=== PATIENT | male | born 1985 | race Hispanic/Latino ===

== ENCOUNTER 2017-02-17 23:49 | Emergency (ER) | payer OTHER ==
[~2017-02-17] VITALS: Ht 165.1 cm; Wt 59.0 kg
[~2017-02-17 23:49] MED LIST: GUAIFENESIN-COD10 ML PO; IBU-6600 MG PO; LANTUS SOL100 UNIT/1 SC; NOVOLOG FL100 UNIT/1 SC; TAMIFLU75 M1 PO; ZITHROMAX250 M2 PO; ZOFRAN ODT4 M1 PO; ZOFRAN4 M1 SL
[2017-02-18 00:18] LABS: ABSOLUTE BASOPHIL COUNT 0.1 /CUMM (0.0-0.2); ABSOLUTE EOSINOPHIL COUNT 0.2 /CUMM (0.0-0.7); ABSOLUTE GRANULOCYTE CT 10.9 /CUMM (1.4-6.5); ABSOLUTE LYMPH COUNT 2.5 /CUMM (1.2-3.4); ABSOLUTE MONOCYTE COUNT 0.7 /CUMM (0.10-0.60); BASOPHIL % 0.5 % (0.0-2.0); EOSINOPHIL % 1.5 % (0-5); GRANULOCYTE % 75.6 % (42.2-75.2); HEMATOCRIT 45.2 % (42-52); MEAN CORPUSCULAR HGB 26.5 PG (27.0-31.0); MEAN CORPUSCULAR VOLUME 77.8 FL (80.0-94.0); MEAN PLATELET VOLUME 9.6 FL (7.4-10.4); PLATELET COUNT 166 /CUMM (130-400); RED BLOOD CELL CT 5.82 /CUMM (4.70-6.10); WHITE BLOOD CELL COUNT 14.4 /CUMM (4.8-10.8)
--- NOTE | 2017-02-18 01:02 | ED GENERAL ADULT ---
History of Present Illness General Chief Complaint: General Adult Stated Complaint: HX DIABETIES PER PT BS ABOUT 400-500 Source: patient, old records Exam Limitations: no limitations Vital Signs & Intake/Output Vital Signs & Intake/Output Vital Signs Date Time Temp Pulse Resp B/P Pulse O2 O2 Flow FiO2 Ox Delivery Rate 02/18 0156 98 Room Air 02/17 2358 98.5 99 18 166/97 99 Room Air ED Intake and Output 02/18 0000 02/17 1200 Intake Total Output Total Balance Patient 130 lb Weight Allergies Coded Allergies: NO KNOWN ALLERGIES (03/21/16) Reconcile Medications Azithromycin (Zithromax) 250 MG TABLET 1 DP PO AD uri 2 the first day followed by 1 for days 2-5 Insulin Aspart, Recombinant (Novolog Flexpen) 100 UNIT/1 ML INSULN.PEN 5 UNITS SC Q4H DIABETES (Reported) Insulin Glargine,Hum.rec.anlog (Lantus Solostar) 100 UNIT/1 ML INSULN.PEN 15 UNIT SC QPM DIABETES (Reported) PLEASE START TAKING THE 15 UNITS FROM TOMORROW 03/24/2016. PLEASE TAKE 7 UNTIS OF LANTUS TONIGHT IE 03/23/2016, YOU HAVE ALREADY RECIEVED MORNING DOSE OF INSULIN Ondansetron (Zofran Odt) 4 MG TAB.RAPDIS 1 TAB PO 4 TIMES/DAY PRN NAUSEA Oseltamivir Phosphate (Tamiflu) 75 MG CAPSULE 1 TAB PO BID influenza B Robitussin AC (Guaifenesin-Codeine Syrup) 200 MG-20 MG/10 ML LIQUID 10 ML PO Q6HR PRN COUGH Triage Note: PT TO ED C/O SHARP EPIGASTRIC PAIN THAT WRAPS TO RT, FOR 3 HRS. PMH OF PANCREATITIS "FEELS THE SAME" IS IDDM. FINGERSTICKS AT HOME HAVE BEEN "400-500 ALL DAY" PT STATES HE HASN'T EATEN ALL DAY. FINGERSTICK IN TRIAGE 351 Triage Nurses Notes Reviewed? yes Onset: Abrupt Duration: day(s): (1) Timing: multiple episodes today Injury Environment: home Severity: mild, moderate No Modifying Factors: none Associated Symptoms: ABDOMINAL PAIN, LOSS OF APPETITE HPI: 31-year-old male with history of insulin-dependent diabetes presents to the ER for chief complaint of not feeling well, decreased appetite and epigastric abdominal pain for the past 3 hours. He states in general he has not been feeling well all day long. No nausea or vomiting. No fever or chills. Pain does not radiate anywhere. He states he has a history of pancreatitis and was wondering if he had it again today. Denies any diarrhea. No trauma to the abdomen. He is compliant with his medications. His physician sugar has been running 3-400 over the last day. He follows up with primary care doctor as well as Dr. wylie for endocrinology. Past History Travel History Traveled to [place] past 21 day No Medical History Any Pertinent Medical History? 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 Hx Contributory? No Review of Systems Review of Systems Constitutional: Reports: weakness. Denies: chills, fever. Physical Exam Physical Exam General Appearance: alert, awake, anxious, mild distress, thin Head: atraumatic, normal appearance Eyes: Bilateral: normal appearance, PERRL, EOMI. Ears, Nose, Throat: normal pharynx, hearing grossly normal Neck: normal inspection, supple, full range of motion Respiratory: normal breath sounds, chest non-tender, no respiratory distress Cardiovascular: regular rate/rhythm Peripheral Pulses: 2+ radial (R), 2+ radial (L) Gastrointestinal: normal bowel sounds, soft, non-tender Back: normal inspection, normal range of motion Extremities: normal inspection, normal capillary refill, normal range of motion, no edema Neurologic/Psych: no motor/sensory deficits, awake, alert, oriented x 3 Skin: intact, normal color, warm/dry Core Measures ACS in differential dx? No CVA/TIA Diagnosis: No Severe Sepsis Present: No Septic Shock Present: No Progress Differential Diagnoses I considered the following diagnoses in my evaluation of the patient: [Hyper- glycemia, DKA, gastritis, peptic ulcer disease, hepatitis, pancreatitis] Plan of Care: Orders Procedure Date/time Status RAPID VIRAL INFLUENZA A 04/05 0111 Complete LIPASE 02/18 2017 Complete COMPREHENSIVE METABOLIC PANEL 02/18 2017 Complete CBC WITHOUT DIFFERENTIAL 02/18 2017 Complete AMYLASE 02/18 2017 Complete Laboratory Tests 02/18/17 0006: Anion Gap 9, Estimated GFR > 60, BUN/Creatinine Ratio 21.3, Glucose 406 H, Calcium 9.8, Total Bilirubin 0.5, AST 17, ALT 29, Alkaline Phosphatase 70, Total Protein 7.1, Albumin 4.3, Globulin 2.8, Albumin/Globulin Ratio 1.5, Amylase 54, Lipase 114, CBC w Diff NO MAN DIFF REQ, RBC 5.82, MCV 77.8 L, MCH 26.5 L, RDW 13.0, MPV 9.6, Gran % 75.6 H, Lymphocytes % 17.5 L, Monocytes % 4.9, Eosinophils % 1.5, Basophils % 0.5, Absolute Granulocytes 10.9 H, Absolute Lymphocytes 2.5, Absolute Monocytes 0.7 H, Absolute Eosinophils 0.2, Absolute Basophils 0.1, PUBS MCHC 34.0 Microbiology 02/18 123 NASOPHARYN: Influenza Virus A & B Rapid Smear - COMP 02/18/2017 3:10:04 AM Patient feeling slightly better. Blood sugar down into the 80s. He had juice and a wrap. Chest x-ray is negative, flu is negative. Patient likely has viral syndrome. He will follow-up with Dr. wylie in the office. (BRETT MARCUS,JOHN) Diagnostic Imaging: Viewed by Me: Radiology Read. Discussed w/RAD: Radiology Read. CXR Impression: PATIENT: PRAFUL CABRERA PRESENT AGE: 31 PATIENT ACCOUNT NO: [id number] : 86 LOCATION: [facility] ORDERING PHYSICIAN: JOHN WEST MD SERVICE DATE: 02/18/17 EXAM TYPE: RAD - XRY-CHEST XRAY , PA AND LATERAL EXAMINATION: XR CHEST CLINICAL INFORMATION: Cough, not feeling well. COMPARISON: Chest x-ray 03/21/2016 TECHNIQUE: 2 views of the chest were obtained. FINDINGS: No significant abnormality is noted involving the heart, lungs, mediastinum, bony thorax or soft tissues. IMPRESSION: Normal chest. DICTATED BY: BEN FOX MD DATE/TIME DICTATED:02/18/17144 SHALE PLANER OPERATOR HELPER :AARON DATE/TIME TRANSCRIBED:02/18/17144 CONFIDENTIAL, DO NOT COPY WITHOUT APPROPRIATE AUTHORIZATION. <Electronically signed in Other Vendor System> SIGNED BY: BEN FOX MD 02/18/17148 Initial ED EKG: none Departure Departure Time of Disposition: 309 Disposition: HOME OR SELF CARE Condition: Stable Clinical Impression Primary Impression: Hyperglycemia Referrals: ILENE JOSE DO (PCP/Family) BEBETO MARCUS,MELANIE Additional Instructions: Check your blood sugar and take your insulin as directed. If you have issues controlling her blood sugar please call Dr. wylie. Return to the ER for any changing or worsening symptoms. Departure Forms: Customer Survey General Discharge Information Critical Care Note Critical Care Note Critical Care Time: non-applicable
--- NOTE | 2017-02-18 01:49 | RADIOLOGY REPORT ---
EXAMINATION: XR CHEST CLINICAL INFORMATION: Cough, not feeling well. COMPARISON: Chest x-ray 03/21/2016 TECHNIQUE: 2 views of the chest were obtained. FINDINGS: No significant abnormality is noted involving the heart, lungs, mediastinum, bony thorax or soft tissues. IMPRESSION: Normal chest.
[2017-02-18 03:13] VITALS: BP 130/64
== END 2017-02-18 03:46 ==
LOC: ERH 23:49
PROVIDERS: Emergency Medicine
DX: E10.65 Type 1 diabetes mellitus with hyperglycemia (principal)
CPT/HCPCS: 87804; 87804-59; 96360; 96372

== ENCOUNTER 2018-01-04 12:23 | Observation (INO) | payer OTHER ==
[2018-01-04] MEDS ORDERED: IBUPROFEN800 M1 PO (16:04)
[2018-01-04] MEDS ORDERED: DICYCLOMINE HCL10 M1 PO (16:04)
[2018-01-04] MEDS ORDERED: PROMETHAZINE HC25 M3 PO (16:04)
[2018-01-04] MEDS ORDERED: ZOFRAN ODT4 M1 SL (16:04)
--- NOTE | 2018-01-04 16:05 | ED GENERAL ADULT ---
See Addendum History of Present Illness General Chief Complaint: General Adult Stated Complaint: HYPOGLACEMIA, "55" PER PT Source: patient Exam Limitations: no limitations Vital Signs & Intake/Output Vital Signs & Intake/Output Vital Signs Date Time Temp Pulse Resp B/P B/P Pulse O2 O2 Flow FiO2 Mean Ox Delivery Rate 01/04 1952 98.6 81 18 128/65 98 Room Air 01/04 1232 97.4 106 132/76 98 Room Air Allergies Coded Allergies: NO KNOWN ALLERGIES (03/21/16) Reconcile Medications Azithromycin (Zithromax) 250 MG TABLET 1 DP PO AD uri 2 the first day followed by 1 for days 2-5 Dicyclomine HCl 10 MG CAPSULE 1 CAP PO TID abd spasms Ibuprofen 800 MG TABLET 1 TAB PO TID body ches/fever Insulin Aspart, Recombinant (Novolog Flexpen) 100 UNIT/1 ML INSULN.PEN 5 UNITS SC Q4H DIABETES (Reported) Insulin Glargine,Hum.rec.anlog (Lantus Solostar) 100 UNIT/1 ML INSULN.PEN 15 UNIT SC QPM DIABETES (Reported) PLEASE START TAKING THE 15 UNITS FROM TOMORROW 03/24/2016. PLEASE TAKE 7 UNTIS OF LANTUS TONIGHT IE 03/23/2016, YOU HAVE ALREADY RECIEVED MORNING DOSE OF INSULIN Ondansetron (Zofran Odt) 4 MG TAB.RAPDIS 1 TAB SL TID nausea Ondansetron (Zofran Odt) 4 MG TAB.RAPDIS 1 TAB PO 4 TIMES/DAY PRN NAUSEA Oseltamivir Phosphate (Tamiflu) 75 MG CAPSULE 1 TAB PO BID influenza B Promethazine HCl 25 MG TABLET 1 TAB PO Q6P PRN nausea Robitussin AC (Guaifenesin-Codeine Syrup) 200 MG-20 MG/10 ML LIQUID 10 ML PO Q6HR PRN COUGH Triage Note: PT TO ED WITH MID ABD PAIN, N/V SINCE LAST NIGHT. REPORTS BLOOD GLUCOSE READING 55 AT HOME THIS MORNING. DRANK OJ BUT HAVING TROUBLE KEEPING PO DOWN. BLOOD SUGAR 263 AT TRIAGE. Triage Nurses Notes Reviewed? yes Onset: Abrupt Duration: hour(s):, constant, continues in ED Timing: recent history Injury Environment: home No Modifying Factors: none HPI: 32-year-old male comes into the emergency room for further evaluation of sudden onset nausea vomiting diarrhea that began this morning around 2 AM. Patient has not been able to keep anything down. Patient feels profoundly weak. Denies any fever. Comes in for further evaluation. Patient is a type I diabetic. (Edwar Aguilar) Past History Travel History Traveled to [place] past 21 day No Medical History Any Pertinent Medical History? 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 Hx Contributory? No (Edwar Aguilar) Review of Systems Review of Systems Constitutional: Reports: see HPI. EENTM: Reports: no symptoms. Respiratory: Reports: no symptoms. Cardiovascular: Reports: no symptoms. GI: Reports: see HPI. Genitourinary: Reports: no symptoms. Musculoskeletal: Reports: no symptoms. Skin: Reports: no symptoms. Neurological/Psychological: Reports: no symptoms. Hematologic/Endocrine: Reports: no symptoms. Immunologic/Allergic: Reports: no symptoms. All Other Systems: Reviewed and Negative (Edwar Aguilar) Physical Exam Physical Exam General Appearance: well developed/nourished, alert, awake Head: atraumatic, normal appearance Eyes: Bilateral: normal appearance. Ears, Nose, Throat: normal ENT inspection, hearing grossly normal Neck: normal inspection Respiratory: normal breath sounds, no respiratory distress Cardiovascular: regular rate/rhythm Back: normal inspection Extremities: normal inspection Neurologic/Psych: awake, alert, oriented x 3, normal gait Skin: intact, normal color Core Measures ACS in differential dx? No CVA/TIA Diagnosis: No Sepsis Present: No Sepsis Focused Exam Completed? No (Edwar Aguilar) Progress Differential Diagnoses I considered the following diagnoses in my evaluation of the patient: Gastritis , influenza, viral syndrome, DKA, Plan of Care: Orders Procedure Date/time Status CBC WITHOUT DIFFERENTIAL 01/05 0200 Active BASIC METABOLIC PANEL 01/05 0200 Active ACETONE 01/05 0200 Active URINALYSIS 01/04 1802 Complete Add-on Test (ER Only) 01/04 1749 Active Add-on Test (ER Only) 01/04 1704 Active LACTIC ACID 01/04 1610 Complete ACETONE 01/04 1610 Complete EKG 01/04 1602 Active TROPONIN LEVEL 01/04 1538 Complete LIPASE 01/04 1538 Complete COMPREHENSIVE METABOLIC PANEL 01/04 1302 Complete CBC WITHOUT DIFFERENTIAL 01/04 1302 Complete Current Medications Sig/Janeth Start time Last Medication Dose Stop Time Status Admin Insulin Detemir 16 UNITS ONCE ONE 01/04 2100 AC (Levemir) 01/04 210 Sodium Chloride 1,000 ML BOLUS ONE 01/04 1930 AC (Normal Saline 0.9%) 01/04 2029 Sodium Chloride 1,000 ML ONCE ONE 01/04 1915 AC 01/04 (Normal Saline 0.9%) 01/05 0154 1913 Laboratory Tests 01/04/18 1805: Urine Color YEL, Urine Clarity CLEAR, Urine pH 6.0, Ur Specific [place] 1.025, Urine Protein NEG, Urine Ketones >=80, Urine Nitrite NEG, Urine Bilirubin NEG, Urine Urobilinogen 0.2, Ur Leukocyte Esterase NEG, Ur Microscopic EXAM NOT REQUIRED, Urine Hemoglobin NEG, Urine Glucose >=1000 H 01/04/18 1703: Acetone Level Cancelled 01/04/18 1610: Troponin I < 0.01, Lipase 52 01/04/18 1610: Anion Gap 18 H, Estimated GFR > 60, BUN/Creatinine Ratio 28.6 H, Glucose 301 H, Lactic Acid 1.5, Calcium 10.1, Total Bilirubin 1.1, AST 24, ALT 28, Alkaline Phosphatase 83, Total Protein 7.9, Albumin 4.8, Globulin 3.1, Albumin/Globulin Ratio 1.5, CBC w Diff NO MAN DIFF REQ, RBC 6.11 H, MCV 79.3 L, MCH 26.0 L, MCHC 32.8 L, RDW 13.4, MPV 9.6, Gran % 90.0 H, Lymphocytes % 4.2 L, Monocytes % 5.6, Eosinophils % 0, Basophils % 0.2, Absolute Granulocytes 10.4 H, Absolute Lymphocytes 0.5 L, Absolute Monocytes 0.6, Absolute Eosinophils 0, Absolute Basophils 0, Acetone Level POSITIVE AT 1:4 DIL Initial ED EKG: normal sinus rhythm, rate (89) (Edwar Aguilar) Differential Diagnoses I considered the following diagnoses in my evaluation of the patient: (Connor Navarro DO) Departure Departure Disposition: STILL A PATIENT Condition: Stable Clinical Impression Primary Impression: Dehydration Secondary Impressions: Viral syndrome Referrals: Razia Baig DO (PCP/Family) Additional Instructions: Take Zofran, promethazine, ibuprofen, and Bentyl as prescribed. Rest. Drink plenty fluids. Return if any other concerns worsening symptoms. Please go over all results of today's visit with your primary care doctor. Contact your primary care doctor to let them know you were here in the emergency room. There may be nonspecific findings which may not be related to your visit today here in the emergency room but may require further evaluation and chronic monitoring by your primary care doctor. If you had a laceration today the chance of foreign body always remains. You should follow-up with your primary care doctor for recheck in 3-5 days for a wound check. If you had an x-ray done there is a chance that a fracture could have been missed on initial read and you should follow-up with your primary care doctor for repeat x-rays if symptoms persist. If your blood pressure was elevated here in the emergency room please have rechecked by [facility] primary care doctor within the next 48. If you were prescribed a narcotic here in the emergency room or any type of controlled substances you're not allowed to drive while taking this medication or operate any type of heavy machinery. Narcotics can make you feel lightheaded dizziness nausea and can cause constipation. You may need to fruit or nut picker a stool softener. Thank you for choosing [facility] emergency room. Please return to the emergency room immediately if you have any other concerns worsening of symptoms. Departure Forms: Customer Survey General Discharge Information Prescriptions: Current Visit Scripts Ondansetron (Zofran Odt) 1 TAB SL TID #10 TAB Promethazine HCl 1 TAB PO Q6P PRN nausea #30 TAB Dicyclomine HCl 1 CAP PO TID #20 CAP Ibuprofen 1 TAB PO TID #20 TAB Comments 01/04/2018 7:21:22 PM Patient is going to be placed in ED observation. Patient signed out to Dr. Elmer. Repeat labs. Continue IV hydration. (Edwar Aguilar) PA/CORPORATE LEGAL INTERN Co-Sign Statement Statement: ED Attending supervision documentation- [X] I saw and evaluated the patient. I have also reviewed all the pertinent lab results and diagnostic results. I agree with the findings and the plan of care as documented in the PA's/CORPORATE LEGAL INTERN's documentation. [] I have reviewed the ED Record and agree with the PA's/CORPORATE LEGAL INTERN's documentation. [] Additions or exceptions (if any) to the PAs/CORPORATE LEGAL INTERN's note and plan are summarized below: [] (Ramon HERNÁNDEZ,Connor Faustin) Critical Care Note Critical Care Note Critical Care Time: 30-74 min (45) (Edwar Aguilar)
[2018-01-04 16:26] LABS: ABSOLUTE BASOPHIL COUNT 0 /CUMM (0.0-0.2); ABSOLUTE EOSINOPHIL COUNT 0 /CUMM (0.0-0.7); ABSOLUTE GRANULOCYTE CT 10.4 /CUMM (1.4-6.5); ABSOLUTE LYMPH COUNT 0.5 /CUMM (1.2-3.4); ABSOLUTE MONOCYTE COUNT 0.6 /CUMM (0.10-0.60); BASOPHIL % 0.2 % (0.0-2.0); EOSINOPHIL % 0 % (0-5); HEMATOCRIT 48.5 % (42-52); MEAN CORPUSCULAR HGB CONC 32.8 G/DL (33.0-37.0); MEAN CORPUSCULAR VOLUME 79.3 FL (80.0-94.0); MEAN PLATELET VOLUME 9.6 FL (7.4-10.4); PLATELET COUNT 225 /CUMM (130-400); RBC DISTRIBUTION WIDTH 13.4 % (11.5-14.5); RED BLOOD CELL CT 6.11 /CUMM (4.70-6.10); WHITE BLOOD CELL COUNT 11.5 /CUMM (4.8-10.8)
[2018-01-05 01:03] LABS: ABSOLUTE EOSINOPHIL COUNT 0 /CUMM (0.0-0.7); ABSOLUTE LYMPH COUNT 1.1 /CUMM (1.2-3.4); ABSOLUTE MONOCYTE COUNT 0.9 /CUMM (0.10-0.60)
[2018-01-05 01:12] LABS: ABSOLUTE BASOPHIL COUNT 0 /CUMM (0.0-0.2); ABSOLUTE GRANULOCYTE CT 6.1 /CUMM (1.4-6.5); BASOPHIL % 0.1 % (0.0-2.0); EOSINOPHIL % 0.1 % (0-5); GRANULOCYTE % 75.1 % (42.2-75.2); MEAN CORPUSCULAR HGB 26.3 PG (27.0-31.0); MEAN CORPUSCULAR HGB CONC 33.7 G/DL (33.0-37.0); MEAN PLATELET VOLUME 9.5 FL (7.4-10.4); PLATELET COUNT 156 /CUMM (130-400); RBC DISTRIBUTION WIDTH 12.9 % (11.5-14.5); RED BLOOD CELL CT 4.99 /CUMM (4.70-6.10); WHITE BLOOD CELL COUNT 8.1 /CUMM (4.8-10.8)
[2018-01-05 01:23] LABS: HEMATOCRIT 38.9 % (42-52)
[2018-01-05 01:58] VITALS: BP 119/56
== END 2018-01-05 02:00 ==
LOC: ERH 12:23 → ERHI 20:51
PROVIDERS: Physician Assistant; Physician Assistant Medical
DX: E10.10 Type 1 diabetes mellitus with ketoacidosis without coma (principal); Z79.4 Long term (current) use of insulin; F17.200 Nicotine dependence, unspecified, uncomplicated; E86.0 Dehydration; B34.9 Viral infection, unspecified
CPT/HCPCS: 81003; 93005; 93010; 96372; 96374; 96375; 99291; G0378; J1815; J1885; J2405; J2765; J3490

== ENCOUNTER 2018-07-31 10:24 | Emergency (ER) | payer OTHER ==
[~2018-07-31] VITALS: Ht 165.1 cm; Wt 56.7 kg
[~2018-07-31 10:24] MED LIST changes: +DICYCLOMINE HCL10 M1 PO; +IBUPROFEN800 M1 PO; +PROMETHAZINE HC25 M3 PO; +ZOFRAN ODT4 M1 SL
--- NOTE | 2018-07-31 11:33 | ED GI/GU/ABDOMINAL COMPLAINT ---
History of Present Illness General Chief Complaint: Abdominal Pain/Flank Pain Stated Complaint: ELAVATED BS/ABD PAIN Source: patient, old records Exam Limitations: no limitations Vital Signs & Intake/Output Vital Signs & Intake/Output Vital Signs Date Time Temp Pulse Resp B/P B/P Pulse O2 O2 Flow FiO2 Mean Ox Delivery Rate 07/31 1359 97.6 68 18 118/65 98 07/31 1033 96.2 88 18 143/73 98 Room Air Allergies Coded Allergies: NO KNOWN ALLERGIES (03/21/16) Reconcile Medications Azithromycin (Zithromax) 250 MG TABLET 1 DP PO AD uri 2 the first day followed by 1 for days 2-5 Dicyclomine HCl 10 MG CAPSULE 1 CAP PO TID abd spasms Ibuprofen 800 MG TABLET 1 TAB PO TID body ches/fever Insulin Aspart, Recombinant (Novolog Flexpen) 100 UNIT/1 ML INSULN.PEN 5 UNITS SC Q4H DIABETES (Reported) Insulin Glargine,Hum.rec.anlog (Lantus Solostar) 100 UNIT/1 ML INSULN.PEN 15 UNIT SC QPM DIABETES (Reported) PLEASE START TAKING THE 15 UNITS FROM TOMORROW 03/24/2016. PLEASE TAKE 7 UNTIS OF LANTUS TONIGHT IE 03/23/2016, YOU HAVE ALREADY RECIEVED MORNING DOSE OF INSULIN Ondansetron (Zofran Odt) 4 MG TAB.RAPDIS 1 TAB SL TID nausea Ondansetron (Zofran Odt) 4 MG TAB.RAPDIS 1 TAB PO 4 TIMES/DAY PRN NAUSEA Oseltamivir Phosphate (Tamiflu) 75 MG CAPSULE 1 TAB PO BID influenza B Promethazine HCl 25 MG TABLET 1 TAB PO Q6P PRN nausea Robitussin AC (Guaifenesin-Codeine Syrup) 200 MG-20 MG/10 ML LIQUID 10 ML PO Q6HR PRN COUGH Triage Note: 33 YEAR OLD MALE STATES THAT HE IS IDDM AND THAT FOR THE PAST COUPLE OF DAYS HE HAS BEEN HAVING MID ABD PAIN, DENIES N/V/D AND ALSO STATES THAT HE HAS A FRUITY ODOR TO HIS BREATH, FS 304 AT THIS TIME, PT STATES THAT HE USED INSULIN ABOUT 1 HOUR AGO, NOVOLOG 7 UNITS. Triage Nurses Notes Reviewed? yes HPI: 33M PMH Type 1 DM comes in with diffuse abdominal cramping and nausea, found his fingerstick at home to be 400. Abdominal cramping started this morning and has been constant with decreased appetite. He denies fever, chills, headache, sore throat, stiff neck, chest pain, SOB, diarrhea, dysuria, constipation. He is compliant with his insulin and diet. He has no other complaints. Past History Travel History Traveled to [place] past 21 day No Medical History Any Pertinent Medical History? 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 Hx Contributory? No Review of Systems Review of Systems Constitutional: Reports: no symptoms. EENTM: Reports: no symptoms. Respiratory: Reports: no symptoms. Cardiovascular: Reports: no symptoms. GI: Reports: no symptoms. Genitourinary: Reports: no symptoms. Musculoskeletal: Reports: no symptoms. Skin: Reports: no symptoms. Neurological/Psychological: Reports: no symptoms. Hematologic/Endocrine: Reports: no symptoms. Immunologic/Allergic: Reports: no symptoms. All Other Systems: Reviewed and Negative Physical Exam Physical Exam General Appearance: well developed/nourished, no apparent distress Head: atraumatic, normal appearance Eyes: Bilateral: normal appearance. Ears, Nose, Throat, Mouth: moist mucous membrane Neck: normal inspection, supple, full range of motion Respiratory: normal breath sounds, no respiratory distress Cardiovascular: regular rate/rhythm Gastrointestinal: soft, non-tender Back: normal inspection (1), normal range of motion Extremities: normal range of motion Neurologic/Psych: awake, alert, oriented x 3, normal mood/affect Skin: intact, normal color, warm/dry Core Measures ACS in differential dx? No Sepsis Present: No Sepsis Focused Exam Completed? No Progress Differential Diagnosis: biliary colic, gastritis, hepatitis, pancreatitis Plan of Care: Orders Procedure Date/time Status LIPASE 07/31 1140 Complete BLOOD CULTURE 07/31 1120 Active LACTIC ACID 07/31 1120 Complete COMPREHENSIVE METABOLIC PANEL 07/31 1120 Complete CBC WITHOUT DIFFERENTIAL 07/31 1120 Complete URINALYSIS 07/31 1118 Complete Laboratory Tests 07/31/18 1420: Lactic Acid Cancelled 07/31/18 1140: Anion Gap 10, Estimated GFR > 60, BUN/Creatinine Ratio 25.0, Glucose 405 H, Lactic Acid 0.6 L, Calcium 9.3, Total Bilirubin 0.4, AST 17, ALT 27, Alkaline Phosphatase 60, Total Protein 6.2 L, Albumin 3.8, Globulin 2.4, Albumin/ Globulin Ratio 1.6, Lipase 139, CBC w Diff NO MAN DIFF REQ, RBC 5.01, MCV 79.2 L, MCH 26.4 L, MCHC 33.3, RDW 12.9, MPV 9.3, Gran % 77.8 H, Lymphocytes % 14.7 L, Monocytes % 6.4, Eosinophils % 0.8, Basophils % 0.3, Absolute Granulocytes 7.0 H, Absolute Lymphocytes 1.3, Absolute Monocytes 0.6, Absolute Eosinophils 0.1, Absolute Basophils 0, Urine Color YEL, Urine Clarity CLEAR, Urine pH 7.0, Ur Specific [employer] 1.015, Urine Protein NEG, Urine Ketones TRACE H, Urine Nitrite NEG, Urine Bilirubin NEG, Urine Urobilinogen 0.2, Ur Leukocyte Esterase NEG, Ur Microscopic EXAM NOT REQUIRED, Urine Hemoglobin NEG, Urine Glucose >= 1000 H 07/31/18 1123: Lipase Cancelled Microbiology 07/31 1156 BLOOD: Blood Culture - RECD 07/31 1140 BLOOD: Blood Culture - RECD Symptoms resolved after IV hydration and insulin. Patient feels well and would like to go home. He reports he is able to manage his blood sugar on his own and will follow up with Dr. Simmons on Thursday. No evidence of DKA or infection. Diagnostic Imaging: Viewed by Me: CT Scan. Discussed w/RAD: CT Scan. Radiology Impression: PATIENT: PRAFUL CABRERA PRESENT AGE: 33 PATIENT ACCOUNT NO: [id number] : 86 LOCATION: [facility] ORDERING PHYSICIAN: Claudia Krishna MD SERVICE DATE: 07/31/18-123 EXAM TYPE: CAT - CT ABD & PELVIS W IV CONTRAST EXAMINATION: CT ABDOMEN AND PELVIS WITH CONTRAST CLINICAL INFORMATION: Epigastric abdominal pain. Type 1 diabetes. COMPARISON: Renal ultrasound of 11/13/17. TECHNIQUE: Multidetector volumetric imaging was performed of the abdomen and pelvis following IV administration of 95 mL of Optiray 320 intravenous contrast. Sagittal and coronal reformatted images were obtained on the technologist's workstation. DLP: 246.53 mGy-cm FINDINGS: LUNG BASES: There is minimal dependent atelectasis at the right base. Otherwise unremarkable. LIVER, GALLBLADDER, AND BILIARY TREE: The liver shows mild diffuse low-attenuation. No focal lesion is demonstrated. There is trace pericholecystic fluid. No cholelithiasis is demonstrated. PANCREAS: Unremarkable. SPLEEN: Unremarkable. ADRENAL GLANDS: Unremarkable. KIDNEYS AND URETERS: The kidneys are normal in size, shape, and attenuation. No hydronephrosis, hydroureter, or calculi seen. No perinephric stranding. A small simple cyst in the lower pole the left kidney measures 0.9 cm and is unchanged from prior ultrasound. BLADDER: Unremarkable. GASTROINTESTINAL TRACT: The stomach and duodenum are unremarkable. No abnormality of the small bowel or mesentery is demonstrated. The colon is unremarkable. The appendix is normal. ABDOMINAL WALL: Smaller subcutaneous edema in the anterior right abdominal wall is consistent with recent injection site. Otherwise unremarkable. LYMPH NODES: Normal. VASCULAR: Unremarkable. PELVIC VISCERA: Unremarkable. OSSEOUS STRUCTURES: Unremarkable. IMPRESSION: 1. Diffuse low-attenuation of the liver. With small amount of pericholecystic fluid, process such as hepatitis is possible. Correlation with liver enzymes will be helpful. Consider right upper quadrant abdominal to assess for possible cholecystitis. 2. Stable small simple cyst lower pole left kidney. DICTATED BY: Justo Kim MD DATE/TIME DICTATED:07/31/181309 FOREST SUPERVISOR: AARON DATE/TIME TRANSCRIBED:07/31/181309 CONFIDENTIAL, DO NOT COPY WITHOUT APPROPRIATE AUTHORIZATION. <Electronically signed in Other Vendor System> SIGNED BY: Justo Kim MD 07/31/18 1325 Initial ED EKG: none Departure Departure Disposition: HOME OR SELF CARE Condition: Stable Clinical Impression Primary Impression: Type 1 diabetes mellitus with hyperglycemia, with long-term current use of insulin Referrals: Razia Baig DO (PCP/Family) Additional Instructions: Follow up with your career development coordinator on Thursday. Drink plenty of water. If your blood sugar remains high, or if any other new or worsening symptoms, return to ER. Departure Forms: Customer Survey General Discharge Information
[2018-07-31 12:06] LABS: ABSOLUTE BASOPHIL COUNT 0 /CUMM (0.0-0.2); ABSOLUTE EOSINOPHIL COUNT 0.1 /CUMM (0.0-0.7); ABSOLUTE LYMPH COUNT 1.3 /CUMM (1.2-3.4); ABSOLUTE MONOCYTE COUNT 0.6 /CUMM (0.10-0.60); BASOPHIL % 0.3 % (0.0-2.0); EOSINOPHIL % 0.8 % (0-5); GRANULOCYTE % 77.8 % (42.2-75.2); HEMATOCRIT 39.7 % (42-52); MEAN CORPUSCULAR HGB 26.4 PG (27.0-31.0); MEAN CORPUSCULAR HGB CONC 33.3 G/DL (33.0-37.0); MEAN CORPUSCULAR VOLUME 79.2 FL (80.0-94.0); MEAN PLATELET VOLUME 9.3 FL (7.4-10.4); PLATELET COUNT 195 /CUMM (130-400); RBC DISTRIBUTION WIDTH 12.9 % (11.5-14.5); RED BLOOD CELL CT 5.01 /CUMM (4.70-6.10); WHITE BLOOD CELL COUNT 8.9 /CUMM (4.8-10.8)
--- NOTE | 2018-07-31 13:25 | CT SCAN REPORT ---
EXAMINATION: CT ABDOMEN AND PELVIS WITH CONTRAST CLINICAL INFORMATION: Epigastric abdominal pain. Type 1 diabetes. COMPARISON: Renal ultrasound of 11/13/17. TECHNIQUE: Multidetector volumetric imaging was performed of the abdomen and pelvis following IV administration of 95 mL of Optiray 320 intravenous contrast. Sagittal and coronal reformatted images were obtained on the technologist's workstation. DLP: 246.53 mGy-cm FINDINGS: LUNG BASES: There is minimal dependent atelectasis at the right base. Otherwise unremarkable. LIVER, GALLBLADDER, AND BILIARY TREE: The liver shows mild diffuse low-attenuation. No focal lesion is demonstrated. There is trace pericholecystic fluid. No cholelithiasis is demonstrated. PANCREAS: Unremarkable. SPLEEN: Unremarkable. ADRENAL GLANDS: Unremarkable. KIDNEYS AND URETERS: The kidneys are normal in size, shape, and attenuation. No hydronephrosis, hydroureter, or calculi seen. No perinephric stranding. A small simple cyst in the lower pole the left kidney measures 0.9 cm and is unchanged from prior ultrasound. BLADDER: Unremarkable. GASTROINTESTINAL TRACT: The stomach and duodenum are unremarkable. No abnormality of the small bowel or mesentery is demonstrated. The colon is unremarkable. The appendix is normal. ABDOMINAL WALL: Smaller subcutaneous edema in the anterior right abdominal wall is consistent with recent injection site. Otherwise unremarkable. LYMPH NODES: Normal. VASCULAR: Unremarkable. PELVIC VISCERA: Unremarkable. OSSEOUS STRUCTURES: Unremarkable. IMPRESSION: 1. Diffuse low-attenuation of the liver. With small amount of pericholecystic fluid, process such as hepatitis is possible. Correlation with liver enzymes will be helpful. Consider right upper quadrant abdominal to assess for possible cholecystitis. 2. Stable small simple cyst lower pole left kidney.
[2018-07-31 13:59] VITALS: BP 118/65
== END 2018-07-31 15:30 ==
LOC: ERH 10:24
PROVIDERS: Internal Medicine
DX: E10.65 Type 1 diabetes mellitus with hyperglycemia (principal); Z79.84 Long term (current) use of oral hypoglycemic drugs
CPT/HCPCS: 74177; 81003; 87040; 96360; 96361; 96372